=== PATIENT | male | born 1995 | race Caucasian/White ===

== ENCOUNTER → 2017-12-24 | Outpatient (CLI) | payer OTHER ==
--- NOTE | 2017-12-24 15:30 | PULMONARY FUNCTION TEST ---
Spirometry shows a normal forced vital capacity and FEV1, but with a mildly decreased FEV1/FVC ratio. These results would indicate mild airflow obstruction. Repeat study done following bronchodilators showed a 16% improvement in FEV1 suggesting reversible obstructive airways disease. Flow volume loops were consistent with spirometric findings.
== END | disposition home or self-care (01) ==
LOC: C.RC 10:14 → MERGE 10:30
PROVIDERS: ATTEND Family Medicine
DX: R06.2 Wheezing (principal); R05 Cough